=== PATIENT | female | born 1950 | race Asian ===

== ENCOUNTER 2018-06-16 09:33 | Emergency (ER) | payer MEDICARE ==
[~2018-06-16] VITALS: Ht 154.9 cm; Wt 81.8 kg
[2018-06-16] MEDS ORDERED: ASPI81TA39 PO (09:46)
[2018-06-16] MEDS ORDERED: INSU100C6 SQ (09:46)
[2018-06-16] MEDS ORDERED: CARV6.2579 PO (09:46)
[2018-06-16] MEDS ORDERED: CHLO25TA3 PO (09:46)
[2018-06-16] MEDS ORDERED: FURO-152 PO (09:46)
[2018-06-16] MEDS ORDERED: AMLO10TA4 PO (09:46)
[2018-06-16] MEDS ORDERED: ATOR80TA PO (09:46)
[2018-06-16 11:44] VITALS: BP 147/73
== END 2018-06-16 11:46 | disposition home or self-care (01) ==
LOC: EDSEX 09:38 → EMS 09:38
DX: S81.802D Unspecified open wound, left lower leg, subsequent encounter (principal); I25.10 Atherosclerotic heart disease of native coronary artery without angina pectoris; I11.0 Hypertensive heart disease with heart failure; I50.9 Heart failure, unspecified; I25.2 Old myocardial infarction; E11.9 Type 2 diabetes mellitus without complications; J44.9 Chronic obstructive pulmonary disease, unspecified; E78.00 Pure hypercholesterolemia, unspecified; Z79.4 Long term (current) use of insulin; Z79.82 Long term (current) use of aspirin; W55.01XD Bitten by cat, subsequent encounter
CPT/HCPCS: 99283

== ENCOUNTER 2018-09-01 09:59 | Emergency (ER) | payer MEDICARE, OTHER ==
[~2018-09-01] VITALS: Ht 154.9 cm; Wt 77.0 kg
[~2018-09-01 09:59] MED LIST: AMLO10TA4 PO; ASPI81TA39 PO; ATOR80TA PO; CARV6.2579 PO; CHLO25TA3 PO; FURO-152 PO; INSU100C6 SQ
[2018-09-01 10:18] LABS: GLUCOSE,POINT OF CARE 189 MG/DL (70-110)
[2018-09-01 11:07] VITALS: BP 187/96
== END 2018-09-01 11:23 | disposition home or self-care (01) ==
LOC: EMS 09:59
DX: E11.622 Type 2 diabetes mellitus with other skin ulcer (principal); L97.819 Non-pressure chronic ulcer of other part of right lower leg with unspecified severity; I11.9 Hypertensive heart disease without heart failure; I50.9 Heart failure, unspecified; I25.2 Old myocardial infarction; I25.10 Atherosclerotic heart disease of native coronary artery without angina pectoris; E78.00 Pure hypercholesterolemia, unspecified; Z79.4 Long term (current) use of insulin; Z79.82 Long term (current) use of aspirin; Z79.899 Other long term (current) drug therapy

== ENCOUNTER 2018-09-13 09:00 | Emergency (ER) | payer MEDICARE ==
[~2018-09-13] VITALS: Ht 152.4 cm; Wt 78.2 kg
[2018-09-13 09:18] LABS: GLUCOSE,POINT OF CARE 331 MG/DL (70-110)
[2018-09-13] MEDS ORDERED: MUPIROCIN CALCIUM 2% 22 GM OINTMENT TP ONE (11:30)
[2018-09-13 12:19] VITALS: BP 157/88
== END 2018-09-13 12:22 | disposition home or self-care (01) ==
LOC: EMS 09:01
DX: S81.802D Unspecified open wound, left lower leg, subsequent encounter (principal); E11.9 Type 2 diabetes mellitus without complications; I25.10 Atherosclerotic heart disease of native coronary artery without angina pectoris; I11.0 Hypertensive heart disease with heart failure; I50.9 Heart failure, unspecified; E78.00 Pure hypercholesterolemia, unspecified; I25.2 Old myocardial infarction; J44.9 Chronic obstructive pulmonary disease, unspecified; Z79.82 Long term (current) use of aspirin; Z79.4 Long term (current) use of insulin; Z79.899 Other long term (current) drug therapy; X58.XXXD Exposure to other specified factors, subsequent encounter